=== PATIENT | male | born 1980 | race African-American/Black ===

== ENCOUNTER 2016-11-04 18:16 | Emergency (ER) | payer BC, OTHER ==
--- NOTE | ~2016-11-04 | EKG ---
PATIENT: SEMAJ OVALLE UNIT #: [id number] Ventricular Rate: 98 BPM Atrial Rate: 98 BPM P-R Interval: 154 ms QRS Duration: 92 ms Q-T Interval: 358 ms QTC Calculation(Bezet): 457 ms P [place]: 33 degrees Calculated R [place]: 51 degrees Calculated T [place]: 19 degrees Diagnosis Line: Normal sinus rhythm Diagnosis Line: Nonspecific T wave abnormality Diagnosis Line: Borderline ECG Diagnosis Line: No previous ECGs available Diagnosis Line: Confirmed by ABELARDO STONE MD ([id number]) on 11/06/2016 Diagnosis Line: 7:30:13 AM INTERPRETING MD: BERTHA HER
--- NOTE | ~2016-11-04 | CR72 ---
[facility] A Service of [facility] & [facility] RADIOLOGY TEXT RESULTS PATIENT: SEMAJ OVALLE LOCATION: [facility] : 78 UNIT #: [id number] AGE: [address]: Brant Syed MD SEX: M ORDER DR: [id number] [facility] [address] [place], [place] [address] [id number] MR#: [id number] Acc #: [id number] NAME: SEMAJ OVALLE : 1980 SEX: M STUDY DATE/TIME: 11/04/2016 18:23 UNIT: [facility] ROOM: STUDY DESCRIPTION: CR Chest Single View Portable Attending Physician: Brant Syed M.D. Ordering Physician: Brant Syed M.D. MEDICAL IMAGING REPORT This report is preliminary unless electronic signature is present EXAM Chest x-ray single view portable, 11/04/2016 HISTORY Palpitations, short of air. Symptoms for a week. History of hypertension. New medication. COMMENT Frontal view of the chest reviewed. Second view obtained also, both frontal positioning. There is mild cardiac silhouette enlargement for age group. No pleural effusion or pneumothorax is suspected. No acute-appearing parenchymal infiltrate or acute congestive failure. IMPRESSION Mild cardiac silhouette enlargement, otherwise no active disease. Dictated by... Jane Mcarthur M.D. THIS IS AN ELECTRONICALLY VERIFIED REPORT Jane Mcarthur M.D. at 11/06/2016 7:46 AM ERNIE/fausto TD: 11/05/2016 23:33 JOB #: [id number] MEDICAL IMAGING REPORT COPY
[2016-11-04 18:38] LABS: BASOPHIL% 0.5 % (0-2.5); EOSINOPHIL# 0.1 X10e3 (0-0.7); EOSINOPHIL% 2.5 % (0.0-7.0); HEMATOCRIT 47.7 % (38.0-50.0); HEMOGLOBIN 15.8 gm/dL (13.0-16.0); LYMPHOCYTE# 1.6 X10e3 (1.0-3.5); LYMPHOCYTE% 27.6 % (17.0-45.0); MEAN CELL VOLUME 83.6 FL (83-96); MEAN CORPUSCULAR HEMOGLOBIN 27.8 PG (28-34); MEAN CORPUSCULAR HGB CONC 33.3 g/dL (30-36); MEAN PLATELET VOLUME 9.2 FL (6.5-11.5); MONOCYTE# 0.5 X10e3 (0-1.0); NEUTROPHIL# 3.5 X10e3 (1.5-7.1); NEUTROPHIL% 61.4 % (40-75); PLATELET COUNT 167 X10e3 (140-420); RED CELL DISTRIBUTION WIDTH 14.4 % (11.0-15.5); WHITE BLOOD COUNT 5.7 X10e3 (4.0-10.5)
[2016-11-04 18:39] LABS: DIFF IND NO
[2016-11-04 18:58] LABS: BLOOD UREA NITROGEN 13 mg/dL (9-23); BUN/CREATININE RATIO 14.44; CALCIUM SERUM 9.1 mg/dL (8.4-10.2); CARBON DIOXIDE 29 mmol/L (22-31); CHLORIDE 97 mmol/L (100-111); CREATININE SERUM 0.9 mg/dL (0.6-1.4); GLOM FILT RATE Estimated ABOVE60 mL/min (>60); GLUCOSE FASTING 142 mg/dL (70-110); POTASSIUM 3.9 mmol/L (3.5-5.1); SODIUM 136 mmol/L (135-145)
[2016-11-04 19:31] LABS: POC - CKMB 2.7 ng/mL (0.0-7.9); POC - TROPONIN <0.05 ng/mL (<=0.05)
[2016-11-04 19:42] LABS: POC - CKMB 2.9 ng/mL (0.0-7.9); POC - TROPONIN <0.05 ng/mL (<=0.05)
[2016-11-04 20:14] LABS: POC - CKMB 2.6 ng/mL (0.0-7.9); POC - TROPONIN <0.05 ng/mL (<=0.05)
== END 2016-11-04 20:02 | disposition home or self-care (01) ==
LOC: CED 18:16
PROVIDERS: Emergency Medicine
DX: R00.2 Palpitations (principal); I10 Essential (primary) hypertension; Z88.8 Allergy status to other drugs, medicaments and biological substances
CPT/HCPCS: 36415; 71010; 80048; 82553; 83735; 84443; 84484; 85025; 93005; 96360; 99284